=== PATIENT | female | born 1980 | race Caucasian/White ===

== ENCOUNTER 2020-09-18 22:46 | Inpatient (IN) | payer OTHER ==
[~2020-09-18] VITALS: Ht 167.6 cm; Wt 79.1 kg
[~2020-09-18 22:46] MED LIST: FOLI-130 PO; OLAN10TA74 PO; THIA100T80 PO
[2020-09-19] MEDS ORDERED: OLANZapine 5 MG TABLET PO ONE (02:00)
[2020-09-19 02:38] LABS: BASOPHILS % (AUTO) 0.6 % (0.0-2.0); EOSINOPHILS % (AUTO) 0 % (1.0-6.0); HEMATOCRIT 36.4 % (36-46); HEMOGLOBIN 12.6 g/dL (12.0-16.0); LYMPHOCYTES # (AUTO) 1.6 K/uL (1.0-4.8); LYMPHOCYTES % (AUTO) 23.2 % (22.0-44.0); MEAN CORPUSCULAR HEMOGLOBIN 31.3 pg (26.0-34.0); MEAN CORPUSCULAR HGB CONC 34.6 G/dL (31.0-37.0); MEAN CORPUSCULAR VOLUME 91 fL (80-100); MONOCYTES # (AUTO) 0.5 K/uL (0.1-1.0); MONOCYTES % (AUTO) 7.5 % (2.0-9.0); NEUTROPHILS # (AUTO) 4.6 K/uL (1.8-7.7); NEUTROPHILS % (AUTO) 68.7 % (40.0-70.0); PLATELET COUNT (AUTO) 344 K/uL (150-450); RED BLOOD CELL COUNT(AUTO) 4.02 MIL/uL (4.00-5.20)
[2020-09-19 02:40] LABS: ANION GAP 7 mmol/L (8-16); CALCIUM, TOTAL 8.7 mg/dL (8.8-10.5); CARBON DIOXIDE 26 mmol/L (22-29); CHLORIDE 103 mmol/L (98-107); CREATININE 0.75 mg/dL (0.60-1.30); GLOMERULAR FILTR. RATE CALC > 60 mL/min (>60); GLUCOSE,RANDOM 123 mg/dL (70-110); POTASSIUM 3.9 mmol/L (3.5-5.1); SODIUM SERUM 136 mmol/L (136-145); UREA NITROGEN, BLOOD 11 mg/dL (7-18)
[2020-09-19 02:51] LABS: ALANINE AMINOTRANSFERASE 214 U/L (12-78); ALBUMIN 3.6 g/dL (3.4-5.0); ALKALINE PHOSPHATASE 222 U/L (46-116); ASPARTATE AMINOTRANSFERASE 63 U/L (15-37); BILIRUBIN,TOTAL 0.3 mg/dL (0.1-1.0); HCG,QUANTITATIVE < 1 mIU/mL (0-6); TOTAL PROTEIN, SERUM 7.4 g/dL (6.4-8.2)
[2020-09-19 03:01] LABS: COVID AG,FIA SOURCE NASOPHARYNGEAL
[2020-09-19] MEDS ORDERED: ONDANSETRON HCL 4 MG/2 ML VIAL IVP PRN (05:15)
[2020-09-19] MEDS ORDERED: 0.9% SODIUM CHLORIDE 10 ML SYRINGE IVP PRN (05:15)
[2020-09-19] MEDS ORDERED: ACETAMINOPHEN 325 MG TABLET PO PRN (05:15)
[2020-09-19] MEDS ORDERED: MAGNESIUM HYDROXIDE SUSPENSION 30 ML UDCUP PO PRN (08:00)
[2020-09-19] MEDS: HEPARIN SODIUM,PORCINE 5,000 UNITS/ML VIAL SQ SCH ×2 (08:00→17:01)
[2020-09-19] MEDS: FAMOTIDINE 20 MG TABLET PO SCH (08:27)
[2020-09-19 10:55] VITALS: BP 92/50
[2020-09-19 11:00] VITALS: BP 92/50
[2020-09-19 16:03] VITALS: BP 102/68
[2020-09-19] MEDS: ACETAMINOPHEN 325 MG TABLET PO PRN (17:02)
[2020-09-19 20:15] VITALS: BP 97/62
[2020-09-20] MEDS: HEPARIN SODIUM,PORCINE 5,000 UNITS/ML VIAL SQ SCH ×3 (00:14→16:38)
[2020-09-20 04:05] VITALS: BP 112/77
[2020-09-20 04:35] LABS: AMPHET/METH SCREEN,URINE NEGATIVE (NEGATIVE); BARBITURATE SCREEN, URINE NEGATIVE (NEGATIVE); BENZODIAZEPINES SCREEN,URINE NEGATIVE (NEGATIVE); CANNABINOID SCREEN,URINE NEGATIVE (NEGATIVE); COCAINE SCREEN,URINE NEGATIVE (NEGATIVE); METHADONE SCREEN, URINE NEGATIVE (NEGATIVE); OPIATE SCREEN,URINE NEGATIVE (NEGATIVE); PHENCYCLIDINE SCREEN,URINE NEGATIVE (NEGATIVE)
[2020-09-20 08:06] VITALS: BP 97/65
[2020-09-20] MEDS: FAMOTIDINE 20 MG TABLET PO SCH (08:31)
[2020-09-20] MEDS: OLANZapine 10 MG TABLET PO SCH ×2 (16:38→21:05)
[2020-09-20 19:39] VITALS: BP 97/59
[2020-09-21] MEDS: HEPARIN SODIUM,PORCINE 5,000 UNITS/ML VIAL SQ SCH ×3 (00:02→16:00)
[2020-09-21 04:15] VITALS: BP 103/63
[2020-09-21 07:50] VITALS: BP 109/72
[2020-09-21] MEDS: FAMOTIDINE 20 MG TABLET PO SCH (08:54)
[2020-09-21] MEDS: OLANZapine 10 MG TABLET PO SCH ×3 (08:54→20:52)
[2020-09-21] MEDS ORDERED: LORazepam 2 MG/ML VIAL ONE (10:28)
[2020-09-21] MEDS ORDERED: LORazepam 2 MG/ML VIAL IM ONE (10:30)
[2020-09-21] MEDS ORDERED: ChlorproMAZINE HCL 50 MG/2 ML AMP IM ONE (10:30)
[2020-09-21 18:00] VITALS: BP 101/67
[2020-09-21 20:20] VITALS: BP 100/61
[2020-09-21 23:00] VITALS: BP 96/63
[2020-09-22] MEDS: HEPARIN SODIUM,PORCINE 5,000 UNITS/ML VIAL SQ SCH ×4 (00:03→23:11)
[2020-09-22] MEDS: OLANZapine 10 MG TABLET PO SCH ×3 (08:03→21:00)
[2020-09-22] MEDS: FAMOTIDINE 20 MG TABLET PO SCH (08:03)
[2020-09-22 12:30] VITALS: BP 102/60
[2020-09-22 16:15] VITALS: BP 104/64
[2020-09-22 20:23] VITALS: BP 97/72
[2020-09-22] MEDS: ACETAMINOPHEN 325 MG TABLET PO PRN (22:46)
[2020-09-22] MEDS: MELATONIN 3 MG TABLET PO PRN (23:13)
[2020-09-23 04:23] VITALS: BP 79/50
[2020-09-23] MEDS: OLANZapine 10 MG TABLET PO SCH ×3 (09:06→20:57)
[2020-09-23] MEDS: FAMOTIDINE 20 MG TABLET PO SCH (09:06)
[2020-09-23] MEDS: HEPARIN SODIUM,PORCINE 5,000 UNITS/ML VIAL SQ SCH ×3 (09:07→23:41)
[2020-09-23 09:18] VITALS: BP 93/65
[2020-09-23 15:30] LABS: ANION GAP 7 mmol/L (8-16); CARBON DIOXIDE 26 mmol/L (22-29); CHLORIDE 103 mmol/L (98-107); CREATININE 0.64 mg/dL (0.60-1.30); GLOMERULAR FILTR. RATE CALC > 60 mL/min (>60); GLUCOSE,RANDOM 98 mg/dL (70-110); POTASSIUM 4.2 mmol/L (3.5-5.1); SODIUM SERUM 136 mmol/L (136-145); UREA NITROGEN, BLOOD 7 mg/dL (7-18)
[2020-09-23 15:48] LABS: ALANINE AMINOTRANSFERASE 105 U/L (12-78); ALBUMIN 3.3 g/dL (3.4-5.0); ALKALINE PHOSPHATASE 174 U/L (46-116); ASPARTATE AMINOTRANSFERASE 104 U/L (15-37); BILIRUBIN,TOTAL 0.3 mg/dL (0.1-1.0); C-REACTIVE PROTEIN QUANT 0.79 mg/dL (0.00-0.30); FERRITIN 35 ng/mL (8-252); LACTATE DEHYDROGENASE 210 U/L (81-234); TOTAL PROTEIN, SERUM 7.4 g/dL (6.4-8.2)
[2020-09-23 16:12] VITALS: BP 98/66
[2020-09-23] MEDS ORDERED: DiphenhydrAMINE HCL 50 MG/ML VIAL ONE (17:13)
[2020-09-23] MEDS ORDERED: LORazepam 2 MG/ML VIAL ONE (17:14)
[2020-09-23] MEDS ORDERED: DiphenhydrAMINE HCL 50 MG/ML VIAL IM ONE (17:15)
[2020-09-23] MEDS ORDERED: HALOPERIDOL LACTATE 5 MG/ML VIAL IM ONE (17:15)
[2020-09-23] MEDS ORDERED: LORazepam 2 MG/ML VIAL IM ONE (17:15)
[2020-09-23 19:41] VITALS: BP 104/63
[2020-09-23] MEDS: ACETAMINOPHEN 325 MG TABLET PO PRN (20:57)
[2020-09-23] MEDS: MELATONIN 3 MG TABLET PO PRN (20:57)
[2020-09-24 07:57] VITALS: BP 99/64
[2020-09-24] MEDS: OLANZapine 10 MG TABLET PO SCH ×3 (08:29→20:09)
[2020-09-24] MEDS: FAMOTIDINE 20 MG TABLET PO SCH (08:29)
[2020-09-24] MEDS: HEPARIN SODIUM,PORCINE 5,000 UNITS/ML VIAL SQ SCH ×3 (08:29→23:45)
[2020-09-24 14:53] LABS: ALBUMIN 3.5 g/dL (3.4-5.0); BILIRUBIN,DIRECT 0.1 mg/dL (0.00-0.20); BILIRUBIN,TOTAL 0.3 mg/dL (0.1-1.0); TOTAL PROTEIN, SERUM 7.5 g/dL (6.4-8.2)
[2020-09-24 15:05] VITALS: BP 115/69
[2020-09-24] MEDS ORDERED: REMDESIVIR 200 MG in SODIUM CHLORIDE 0.9% 250 ML IV ONE (15:30)
[2020-09-24] MEDS ORDERED: LORazepam 2 MG/ML VIAL ONE (16:01)
[2020-09-24] MEDS ORDERED: DiphenhydrAMINE HCL 50 MG/ML VIAL ONE (16:01)
[2020-09-24] MEDS ORDERED: HALOPERIDOL LACTATE 5 MG/ML VIAL ONE (16:02)
[2020-09-24] MEDS ORDERED: LORazepam 2 MG/ML VIAL IM ONE (16:15)
[2020-09-24] MEDS ORDERED: HALOPERIDOL LACTATE 5 MG/ML VIAL IM ONE (16:15)
[2020-09-24] MEDS ORDERED: DiphenhydrAMINE HCL 50 MG/ML VIAL IM ONE (16:15)
[2020-09-24 19:42] VITALS: BP 98/67
[2020-09-24] MEDS: ACETAMINOPHEN 325 MG TABLET PO PRN (20:09)
[2020-09-24] MEDS: MELATONIN 3 MG TABLET PO PRN (20:09)
[2020-09-25 04:47] VITALS: BP 91/57
[2020-09-25 07:07] LABS: ALANINE AMINOTRANSFERASE 118 U/L (12-78); ALBUMIN 3.4 g/dL (3.4-5.0); ALKALINE PHOSPHATASE 190 U/L (46-116); ANION GAP 9 mmol/L (8-16); ASPARTATE AMINOTRANSFERASE 97 U/L (15-37); BILIRUBIN,TOTAL 0.3 mg/dL (0.1-1.0); C-REACTIVE PROTEIN QUANT 0.59 mg/dL (0.00-0.30); CARBON DIOXIDE 24 mmol/L (22-29); CHLORIDE 104 mmol/L (98-107); CREATININE 0.71 mg/dL (0.60-1.30); GLOMERULAR FILTR. RATE CALC > 60 mL/min (>60); GLUCOSE,RANDOM 96 mg/dL (70-110); POTASSIUM 3.8 mmol/L (3.5-5.1); SODIUM SERUM 137 mmol/L (136-145); TOTAL PROTEIN, SERUM 7.4 g/dL (6.4-8.2); UREA NITROGEN, BLOOD 11 mg/dL (7-18)
[2020-09-25] MEDS: HEPARIN SODIUM,PORCINE 5,000 UNITS/ML VIAL SQ SCH ×4 (08:00→23:33)
[2020-09-25 08:33] VITALS: BP 92/58
[2020-09-25] MEDS: OLANZapine 10 MG TABLET PO SCH ×3 (09:08→20:24)
[2020-09-25] MEDS: FAMOTIDINE 20 MG TABLET PO SCH (09:08)
[2020-09-25] MEDS ORDERED: REMDESIVIR 100 MG in SODIUM CHLORIDE 0.9% 250 ML IV SCH (16:00)
[2020-09-25 19:45] VITALS: BP 107/67
[2020-09-25] MEDS: ACETAMINOPHEN 325 MG TABLET PO PRN (22:37)
[2020-09-25] MEDS: MELATONIN 3 MG TABLET PO PRN (22:37)
[2020-09-26 05:00] VITALS: BP 94/63
[2020-09-26 07:49] VITALS: BP 102/70
[2020-09-26] MEDS: HEPARIN SODIUM,PORCINE 5,000 UNITS/ML VIAL SQ SCH ×3 (08:00→16:00)
[2020-09-26] MEDS: FAMOTIDINE 20 MG TABLET PO SCH (08:28)
[2020-09-26] MEDS: OLANZapine 10 MG TABLET PO SCH ×2 (08:28→16:17)
== END 2020-09-26 16:53 | DRG 178 ==
LOC: EMS 22:46 → 6S 09-19 08:54
PROVIDERS: ADMIT Internal Medicine; ATTEND Internal Medicine
DX: U07.1 COVID-19 (principal); R45.851 Suicidal ideations; F17.210 Nicotine dependence, cigarettes, uncomplicated; F31.9 Bipolar disorder, unspecified; F41.9 Anxiety disorder, unspecified; F10.20 Alcohol dependence, uncomplicated; J98.8 Other specified respiratory disorders; Z68.28 Body mass index [BMI] 28.0-28.9, adult
CPT/HCPCS: 80053; 80074; 80076; 82728; 83615; 84702; 85025; 85379; 86140; 87081; 99285; A9575; G0480; J1200; J1630; J1644; J2060; J3230; J7050

== ENCOUNTER 2020-10-14 20:50 | Inpatient (IN) | payer OTHER ==
[~2020-10-14] VITALS: Ht 162.6 cm; Wt 80.7 kg
[~2020-10-14 20:50] MED LIST changes: -FOLI-130 PO; -THIA100T80 PO
[2020-10-14] MEDS ORDERED: LORazepam 2 MG/ML VIAL IM ONE ×2 (21:00→21:30)
[2020-10-14] MEDS ORDERED: DiphenhydrAMINE HCL 50 MG/ML VIAL IM ONE (21:00)
[2020-10-14] MEDS ORDERED: HALOPERIDOL LACTATE 5 MG/ML VIAL IM ONE ×2 (21:00→21:30)
[2020-10-14] MEDS ORDERED: ACETAMINOPHEN 325 MG TABLET PO PRN ×2 (21:45)
[2020-10-14] MEDS ORDERED: ONDANSETRON HCL 4 MG/2 ML VIAL IVP PRN ×2 (21:45)
[2020-10-14 21:53] LABS: BASOPHILS % (AUTO) 0.1 % (0.0-2.0); COVID AG,FIA SOURCE NASOPHARYNGEAL; EOSINOPHILS % (AUTO) 0 % (1.0-6.0); HEMATOCRIT 36.7 % (36-46); HEMOGLOBIN 12.9 g/dL (12.0-16.0); LYMPHOCYTES # (AUTO) 1.5 K/uL (1.0-4.8); MEAN CORPUSCULAR HEMOGLOBIN 31.6 pg (26.0-34.0); MEAN CORPUSCULAR HGB CONC 35.3 G/dL (31.0-37.0); MEAN CORPUSCULAR VOLUME 90 fL (80-100); MONOCYTES # (AUTO) 0.5 K/uL (0.1-1.0); MONOCYTES % (AUTO) 7.6 % (2.0-9.0); NEUTROPHILS % (AUTO) 71.3 % (40.0-70.0); PLATELET COUNT (AUTO) 369 K/uL (150-450)
[2020-10-14 22:03] LABS: ANION GAP 12 mmol/L (8-16); CALCIUM, TOTAL 8.7 mg/dL (8.8-10.5); CARBON DIOXIDE 24 mmol/L (22-29); CHLORIDE 104 mmol/L (98-107); CREATININE 0.82 mg/dL (0.60-1.30); GLOMERULAR FILTR. RATE CALC > 60 mL/min (>60); GLUCOSE,RANDOM 111 mg/dL (70-110); POTASSIUM 3.3 mmol/L (3.5-5.1); SODIUM SERUM 140 mmol/L (136-145); UREA NITROGEN, BLOOD 12 mg/dL (7-18)
[2020-10-14 22:17] LABS: ALANINE AMINOTRANSFERASE 32 U/L (12-78); ALBUMIN 3.6 g/dL (3.4-5.0); ALKALINE PHOSPHATASE 111 U/L (46-116); ASPARTATE AMINOTRANSFERASE 20 U/L (15-37); BILIRUBIN,TOTAL 0.3 mg/dL (0.1-1.0); TOTAL PROTEIN, SERUM 7.4 g/dL (6.4-8.2)
[2020-10-14] MEDS: HEPARIN SODIUM,PORCINE 5,000 UNITS/ML VIAL SQ SCH (23:49)
[2020-10-15 00:36] VITALS: BP 90/58
[2020-10-15 05:32] VITALS: BP 100/61
[2020-10-15 08:37] VITALS: BP 84/56
[2020-10-15] MEDS: HEPARIN SODIUM,PORCINE 5,000 UNITS/ML VIAL SQ SCH ×3 (09:20→23:04)
[2020-10-15 09:23] LABS: BASOPHILS % (AUTO) 0.2 % (0.0-2.0); EOSINOPHILS % (AUTO) 0 % (1.0-6.0); HEMATOCRIT 36.7 % (36-46); HEMOGLOBIN 12.6 g/dL (12.0-16.0); LYMPHOCYTES # (AUTO) 1.9 K/uL (1.0-4.8); LYMPHOCYTES % (AUTO) 37.8 % (22.0-44.0); MEAN CORPUSCULAR HEMOGLOBIN 31.2 pg (26.0-34.0); MEAN CORPUSCULAR HGB CONC 34.3 G/dL (31.0-37.0); MEAN CORPUSCULAR VOLUME 91 fL (80-100); MONOCYTES # (AUTO) 0.6 K/uL (0.1-1.0); MONOCYTES % (AUTO) 11.3 % (2.0-9.0); NEUTROPHILS # (AUTO) 2.6 K/uL (1.8-7.7); NEUTROPHILS % (AUTO) 50.7 % (40.0-70.0); PLATELET COUNT (AUTO) 339 K/uL (150-450); RED BLOOD CELL COUNT(AUTO) 4.03 MIL/uL (4.00-5.20); RED CELL DISTRIBUTION WIDTH 13.5 % (11.5-14.5)
[2020-10-15] MEDS ORDERED: SODIUM CHLORIDE 0.9% 500 ML IV ONE ×2 (09:45→10:00)
[2020-10-15 10:20] LABS: ALANINE AMINOTRANSFERASE 28 U/L (12-78); ALBUMIN 3.3 g/dL (3.4-5.0); ALKALINE PHOSPHATASE 101 U/L (46-116); ANION GAP 7 mmol/L (8-16); ASPARTATE AMINOTRANSFERASE 21 U/L (15-37); BILIRUBIN,TOTAL 0.3 mg/dL (0.1-1.0); C-REACTIVE PROTEIN QUANT 0.25 mg/dL (0.00-0.30); CALCIUM, TOTAL 8.5 mg/dL (8.8-10.5); CARBON DIOXIDE 26 mmol/L (22-29); CHLORIDE 107 mmol/L (98-107); CREATININE 0.77 mg/dL (0.60-1.30); FERRITIN 20 ng/mL (8-252); GLOMERULAR FILTR. RATE CALC > 60 mL/min (>60); GLUCOSE,RANDOM 91 mg/dL (70-110); LACTATE DEHYDROGENASE 153 U/L (81-234); POTASSIUM 3.5 mmol/L (3.5-5.1); SODIUM SERUM 140 mmol/L (136-145); TOTAL PROTEIN, SERUM 6.8 g/dL (6.4-8.2); UREA NITROGEN, BLOOD 11 mg/dL (7-18)
[2020-10-15] MEDS ORDERED: SODIUM CHLORIDE 0.9% 1,000 ML IV ONE (11:15)
[2020-10-15 11:35] VITALS: BP 95/60
[2020-10-15 15:41] VITALS: BP 94/56
[2020-10-15 20:24] VITALS: BP 90/56
[2020-10-15] MEDS ORDERED: HALOPERIDOL LACTATE 5 MG/ML VIAL IM ONE (23:00)
[2020-10-16 00:09] VITALS: BP 129/63
[2020-10-16] MEDS: HEPARIN SODIUM,PORCINE 5,000 UNITS/ML VIAL SQ SCH ×4 (08:00→23:17)
[2020-10-16 08:06] VITALS: BP 96/51
[2020-10-16 08:15] LABS: ANION GAP 6 mmol/L (8-16); CARBON DIOXIDE 25 mmol/L (22-29); CHLORIDE 108 mmol/L (98-107); GLOMERULAR FILTR. RATE CALC > 60 mL/min (>60); GLUCOSE,RANDOM 84 mg/dL (70-110); POTASSIUM 3.8 mmol/L (3.5-5.1); SODIUM SERUM 139 mmol/L (136-145); UREA NITROGEN, BLOOD 7 mg/dL (7-18)
[2020-10-16] MEDS: HALOPERIDOL LACTATE 5 MG/ML VIAL IM PRN (15:10)
[2020-10-16] MEDS: OLANZapine 10 MG TABLET PO SCH ×2 (15:12→20:21)
[2020-10-16 20:25] VITALS: BP 109/72
[2020-10-17] MEDS: HEPARIN SODIUM,PORCINE 5,000 UNITS/ML VIAL SQ SCH ×3 (08:00→16:00)
[2020-10-17 08:13] VITALS: BP 91/60
[2020-10-17] MEDS: OLANZapine 10 MG TABLET PO SCH ×3 (08:55→20:11)
[2020-10-17 20:15] VITALS: BP 103/67
[2020-10-18 05:00] VITALS: BP 92/62
[2020-10-18] MEDS: HEPARIN SODIUM,PORCINE 5,000 UNITS/ML VIAL SQ SCH ×3 (08:00→16:00)
[2020-10-18 08:25] VITALS: BP 93/63
[2020-10-18] MEDS: OLANZapine 10 MG TABLET PO SCH ×3 (08:36→20:12)
[2020-10-18 20:21] VITALS: BP 82/45
[2020-10-18] MEDS: HALOPERIDOL LACTATE 5 MG/ML VIAL IM PRN (21:08)
[2020-10-19 05:39] VITALS: BP 97/64
[2020-10-19] MEDS: HEPARIN SODIUM,PORCINE 5,000 UNITS/ML VIAL SQ SCH ×3 (08:00→16:00)
[2020-10-19] MEDS: OLANZapine 10 MG TABLET PO SCH ×2 (08:25→16:03)
== END 2020-10-19 18:18 | DRG 177 ==
LOC: EMS 20:53 → 6S 21:53
PROVIDERS: ADMIT Internal Medicine; ATTEND Internal Medicine
DX: U07.1 COVID-19 (principal); G92 Toxic encephalopathy; F31.9 Bipolar disorder, unspecified; F25.0 Schizoaffective disorder, bipolar type; F41.9 Anxiety disorder, unspecified; F17.210 Nicotine dependence, cigarettes, uncomplicated; I95.9 Hypotension, unspecified
CPT/HCPCS: 80048; 80053; 82728; 83615; 83735; 84145; 84443; 85025; 85379; 86140; 99291; G0480; J1200; J1630; J1644; J2060; J7030; J7040